=== PATIENT | male | born 2000 | race Two or more races ===

== ENCOUNTER 2024-12-08 20:36 | Emergency (ER) | payer BC ==
[~2024-12-08] VITALS: Ht 172.7 cm; Wt 90.7 kg
[2024-12-08 21:46] VITALS: TEMP 98
[2024-12-08] MEDS ORDERED: ONDANSETRON HCL/PF 4 MG/2 ML VIAL ONE (21:54)
[2024-12-08] MEDS ORDERED: ONDA4TAB5 PO (22:00)
[2024-12-08] MEDS: IV NS 0.9% 1,000 ML BAG IV ONE (22:00)
[2024-12-08] MEDS: ONDANSETRON HCL/PF 4 MG/2 ML VIAL IVP ONE (22:00)
[2024-12-08 22:09] LABS: BASOPHILS % (AUTO) 0.1 % (0.0-2.0); EOSINOPHILS % (AUTO) 0.4 % (0.0-6.0); HEMATOCRIT 51 % (39-51); HEMOGLOBIN 17.8 g/dL (13.5-17.5); LYMPHOCYTES # (AUTO) 0.6 K/uL (0.8-4.8); LYMPHOCYTES % (AUTO) 6.2 % (20.0-44.0); MEAN CORPUSCULAR HEMOGLOBIN 31 PG (26.0-33.0); MEAN CORPUSCULAR HGB CONC 35 g/dl (31.0-36.0); MEAN CORPUSCULAR VOLUME 88 fL (80-96); MONOCYTES # (AUTO) 0.5 K/uL (0.1-1.30); MONOCYTES % (AUTO) 5.1 % (2.0-12.0); NEUTROPHILS # (AUTO) 8.9 K/uL (1.8-8.9); NEUTROPHILS % (AUTO) 88.2 % (43.0-81.0); PLATELET COUNT (AUTO) 300 K/uL (150-450); RED BLOOD CELL COUNT(AUTO) 5.83 MIL/uL (4.5-6.0); RED CELL DISTRIBUTION WIDTH 12.7 % (11.5-15.0); WHITE BLOOD COUNT (AUTO) 10.1 K/uL (4.3-11.0)
[2024-12-08 22:20] LABS: CALCIUM, SERUM 9.2 mg/dL (8.5-10.1); CREATININE 0.8 mg/dL (0.6-1.3); POTASSIUM 3.9 mmol/L (3.5-5.1)
[2024-12-08 23:22] VITALS: BP 125/80; O2SAT 98
== END 2024-12-08 23:23 | disposition home or self-care (01) ==
LOC: ER 20:41
DX: K52.9 Noninfective gastroenteritis and colitis, unspecified (principal)
CPT/HCPCS: 99283; 96374; 96361; 85025; 80048; 36415; J2405; J7030